=== PATIENT | female | born 1950 | race Caucasian/White ===

== ENCOUNTER → 2017-12-19 | Outpatient (CLI) | payer OTHER ==
[~2017-12-19] MED LIST: LIPITOR20 MG; SYNTHROID112 MCG
== END | disposition home or self-care (01) ==
LOC: RAD 501 12:42
DX: M54.5 Low back pain (principal)

== ENCOUNTER 2019-06-18 11:14 | Outpatient (CLI) | payer OTHER | END 2019-06-18 11:22 | disposition home or self-care (01) | LOC: SONOGRAMA 11:14 | DX: E04.1 Nontoxic single thyroid nodule (principal) ==

== ENCOUNTER 2019-07-26 12:32 | Outpatient (CLI) | payer OTHER | END 2019-07-26 12:44 | disposition home or self-care (01) | LOC: RAD 12:32 | DX: S46.911A Strain of unspecified muscle, fascia and tendon at shoulder and upper arm level, right arm, initial encounter (principal); W19.XXXA Unspecified fall, initial encounter ==

== ENCOUNTER → 2019-07-31 | Outpatient (CLI) | payer OTHER | END | disposition home or self-care (01) | LOC: NUCLEAR 12:00 | DX: M81.0 Age-related osteoporosis without current pathological fracture (principal); M85.80 Other specified disorders of bone density and structure, unspecified site ==

== ENCOUNTER 2019-08-12 12:57 | Outpatient (CLI) | payer OTHER | END 2019-08-12 13:09 | disposition home or self-care (01) | LOC: RAD 12:57 | DX: L91.9 Hypertrophic disorder of the skin, unspecified (principal) ==

== ENCOUNTER 2019-09-05 19:52 | Emergency (ER) | payer OTHER ==
[~2019-09-05] VITALS: Ht 160 cm; Wt 67.1 kg
== END 2019-09-05 20:49 | disposition home or self-care (01) ==
LOC: ER 19:52
DX: E16.1 Other hypoglycemia (principal)

== ENCOUNTER → 2019-09-24 | Outpatient (CLI) | payer OTHER | END | disposition home or self-care (01) | LOC: RAD 12:28 | DX: M72.2 Plantar fascial fibromatosis (principal); M54.2 Cervicalgia ==

== ENCOUNTER 2021-04-07 14:46 | Outpatient (CLI) | payer OTHER | END 2021-04-07 14:47 | disposition home or self-care (01) | LOC: NUCLEAR 14:46 | PROVIDERS: ATTEND Physical Medicine & Rehabilitation | DX: M81.0 Age-related osteoporosis without current pathological fracture (principal) ==

== ENCOUNTER 2021-07-15 10:15 | Outpatient (CLI) | payer OTHER | END 2021-07-15 10:25 | disposition home or self-care (01) | LOC: PPH VACUNA 10:15 | PROVIDERS: ATTEND Emergency Medicine Pediatric Emergency Medicine | DX: Z23 Encounter for immunization (principal) ==

== ENCOUNTER 2021-12-13 09:38 | Outpatient (CLI) | payer OTHER | END 2021-12-13 09:46 | disposition home or self-care (01) | LOC: SONOGRAMA 09:38 | DX: N20.0 Calculus of kidney (principal) ==

== ENCOUNTER 2022-02-07 09:00 | Outpatient (CLI) | payer OTHER | END 2022-02-07 09:15 | disposition home or self-care (01) | LOC: PPH VACUNA 09:00 | PROVIDERS: ATTEND Emergency Medicine Pediatric Emergency Medicine | DX: Z23 Encounter for immunization (principal) ==

== ENCOUNTER 2022-03-17 09:40 | Outpatient (CLI) | payer OTHER | END 2022-03-17 09:45 | disposition home or self-care (01) | LOC: SONOGRAMA 09:40 | PROVIDERS: ATTEND Urology | DX: R31.21 Asymptomatic microscopic hematuria (principal) ==

== ENCOUNTER → 2022-03-30 13:18 | Outpatient (CLI) | payer OTHER | END | disposition home or self-care (01) | LOC: NUCLEAR 13:18 | PROVIDERS: ATTEND Internal Medicine Endocrinology, Diabetes & Metabolism | DX: M81.0 Age-related osteoporosis without current pathological fracture (principal); Z88.0 Allergy status to penicillin ==

== ENCOUNTER 2022-04-13 12:52 | Outpatient (CLI) | payer OTHER | END 2022-04-13 13:03 | disposition home or self-care (01) | LOC: SONOGRAMA 12:52 | PROVIDERS: ATTEND Internal Medicine Endocrinology, Diabetes & Metabolism | DX: E04.1 Nontoxic single thyroid nodule (principal) ==

== ENCOUNTER 2022-07-11 07:30 | Outpatient (CLI) | payer OTHER | END 2022-07-11 07:31 | disposition home or self-care (01) | LOC: NUCLEAR 07:30 | PROVIDERS: ATTEND Internal Medicine Cardiovascular Disease | DX: I25.10 Atherosclerotic heart disease of native coronary artery without angina pectoris (principal); I25.2 Old myocardial infarction; R94.39 Abnormal result of other cardiovascular function study; Z88.0 Allergy status to penicillin | CPT/HCPCS: 78452; 93017; A9500 ==

== ENCOUNTER 2022-07-11 13:11 | Outpatient (CLI) | payer OTHER | END 2022-07-11 13:21 | disposition home or self-care (01) | LOC: PPH VACUNA 13:11 | PROVIDERS: ATTEND Emergency Medicine Pediatric Emergency Medicine | DX: Z23 Encounter for immunization (principal) ==

== ENCOUNTER 2022-07-19 13:04 | Outpatient (CLI) | payer OTHER | END 2022-07-19 13:15 | disposition home or self-care (01) | LOC: RAD 13:04 | DX: R91.8 Other nonspecific abnormal finding of lung field (principal) ==

== ENCOUNTER 2022-10-19 14:22 | Outpatient (CLI) | payer OTHER | END 2022-10-19 14:30 | disposition home or self-care (01) | LOC: RAD 14:22 | PROVIDERS: ATTEND Physical Medicine & Rehabilitation | DX: M54.50 Low back pain, unspecified (principal) ==

== ENCOUNTER → 2022-11-17 | Outpatient (CLI) | payer OTHER | END | disposition home or self-care (01) | LOC: RAD 14:27 | PROVIDERS: ATTEND Physical Medicine & Rehabilitation | DX: M25.561 Pain in right knee (principal) ==

== ENCOUNTER 2023-02-16 11:48 | Outpatient (CLI) | payer OTHER | END 2023-02-16 12:00 | disposition home or self-care (01) | LOC: TOM 11:48 | PROVIDERS: ATTEND Otolaryngology Otolaryngology/Facial Plastic Surgery | DX: H65.02 Acute serous otitis media, left ear (principal); H70.12 Chronic mastoiditis, left ear; J01.90 Acute sinusitis, unspecified ==

== ENCOUNTER 2023-10-16 12:16 | Outpatient (CLI) | payer OTHER | END 2023-10-16 12:25 | disposition home or self-care (01) | LOC: RAD 12:16 | PROVIDERS: ATTEND Physical Medicine & Rehabilitation | DX: M16.11 Unilateral primary osteoarthritis, right hip (principal); M54.59 Other low back pain ==

== ENCOUNTER 2023-11-24 15:21 | Emergency (ER) | payer OTHER ==
[~2023-11-24] VITALS: Ht 160 cm; Wt 65.8 kg
[2023-11-24] MEDS ORDERED: CRESTOR40 MG PO (15:48)
[2023-11-24] MEDS ORDERED: XANAX XR0.5 MG PO (15:48)
== END 2023-11-24 16:45 | disposition home or self-care (01) ==
LOC: ER 15:21
DX: U07.1 COVID-19 (principal); Z91.041 Radiographic dye allergy status; Z88.0 Allergy status to penicillin

== ENCOUNTER 2024-09-24 12:09 | Outpatient (CLI) | payer OTHER ==
[~2024-09-24 12:09] MED LIST changes: +CRESTOR40 MG PO; +XANAX XR0.5 MG PO
== END 2024-09-24 12:11 | disposition home or self-care (01) ==
LOC: NUCLEAR 12:09
PROVIDERS: ATTEND Family Medicine
DX: Z13.820 Encounter for screening for osteoporosis (principal); M81.0 Age-related osteoporosis without current pathological fracture

== ENCOUNTER 2024-10-03 12:12 | Outpatient (CLI) | payer OTHER | END 2024-10-03 12:17 | disposition home or self-care (01) | LOC: SONOGRAMA 12:12 | PROVIDERS: ATTEND Internal Medicine Endocrinology, Diabetes & Metabolism | DX: E04.1 Nontoxic single thyroid nodule (principal) ==

== ENCOUNTER 2024-11-08 12:17 | Outpatient (CLI) | payer OTHER | END 2024-11-08 12:24 | disposition home or self-care (01) | LOC: SONOGRAMA 12:17 | PROVIDERS: ATTEND Internal Medicine Gastroenterology | DX: R16.1 Splenomegaly, not elsewhere classified (principal) ==

== ENCOUNTER 2025-02-27 11:44 | Outpatient (CLI) | payer OTHER | END 2025-02-27 11:45 | disposition home or self-care (01) | LOC: RAD 11:44 | PROVIDERS: ATTEND Physical Medicine & Rehabilitation | DX: M54.2 Cervicalgia (principal); M17.11 Unilateral primary osteoarthritis, right knee; M25.561 Pain in right knee ==

== ENCOUNTER 2025-04-22 11:30 | Outpatient (CLI) | payer OTHER | END 2025-04-22 11:32 | disposition home or self-care (01) | LOC: SONOGRAMA 11:30 | PROVIDERS: ATTEND Internal Medicine Endocrinology, Diabetes & Metabolism | DX: E04.1 Nontoxic single thyroid nodule (principal) ==

== ENCOUNTER 2025-07-18 12:02 | Outpatient (CLI) | payer OTHER | END 2025-07-18 12:09 | disposition home or self-care (01) | LOC: RAD 12:02 | DX: I10 Essential (primary) hypertension (principal) ==